=== PATIENT | female | born 1930 | race Caucasian/White ===

== ENCOUNTER 2020-05-09 11:37 | Emergency (ER) | payer MEDICARE ==
[2020-05-09 11:48] VITALS: TEMP 98.2
[2020-05-09] MEDS ORDERED: SODIUM CHLORIDE 0.9% 1,000 ML IV STA (12:28)
--- NOTE | 2020-05-09 12:31 | ED ---
General Adult HPI - General Chief complaint: Fall Stated complaint: Fall, head injury Time Seen by Provider: 05/09/20 11:53 Source: patient, family, RN notes reviewed Mode of arrival: wheelchair Limitations: physical limitation - History of Present Illness Initial comments: Patient is a pleasant extremely hard of hearing 89-year-old female presenting to the emergency department with fall. Patient does not recall the episode. Family is unclear however believes the patient fell because she has chronic problems with her left leg. Patient admits to having chronic problems with her left leg. Patient was acting normally when she was found by family. Patient did strike the back of her head. Unclear whether or not patient lost consciousness. No headache. No chest or back pain. No dyspnea. No neck pain. No abdominal pain. - Related Data Home Medications Medication Instructions Recorded Confirmed Atorvastatin [Lipitor] 20 mg PO DAILY 05/09/20 05/09/20 Latanoprost [Xalatan 0.005%] 1 drop BOTH EYES HS 05/09/20 05/09/20 Losartan [Cozaar] 50 mg PO DAILY 05/09/20 05/09/20 Metoprolol Tartrate [Lopressor] 25 mg PO BID 05/09/20 05/09/20 glipiZIDE [Glucotrol] 10 mg PO TID 05/09/20 05/09/20 hydrALAZINE HCL [Apresoline] 25 mg PO BID 05/09/20 05/09/20 Allergies Allergy/AdvReac Type Severity Reaction Status Date / Time No Known Allergies Allergy Verified 05/09/20 13:53 Review of Systems ROS Statement: Those systems with pertinent positive or pertinent negative responses have been documented in the HPI. ROS Other: All systems not noted in ROS Statement are negative. Constitutional: Denies: fever Eyes: Denies: eye pain ENT: Denies: ear pain Respiratory: Denies: cough Cardiovascular: Denies: chest pain Endocrine: Denies: fatigue Gastrointestinal: Denies: abdominal pain Genitourinary: Denies: dysuria Musculoskeletal: Denies: back pain Skin: Denies: rash Neurological: Denies: headache, weakness, confusion Past Medical History Past Medical History: Diabetes Mellitus, Hyperlipidemia, Hypertension, Thyroid Disorder History of Any Multi-Drug Resistant Organisms: None Reported Past Surgical History: No Surgical Hx Reported Past Psychological History: No Psychological Hx Reported Smoking Status: Never smoker Past Alcohol Use History: None Reported Past Drug Use History: None Reported General Exam Limitations: physical limitation General appearance: alert, in no apparent distress Head exam: Present: other (Posterior scalp laceration) Eye exam: Present: other (right eye completely opacified. Left pupil round reactive.) ENT exam: Present: normal oropharynx Neck exam: Present: normal inspection. Absent: tenderness Respiratory exam: Present: normal lung sounds bilaterally Cardiovascular Exam: Present: regular rate, normal rhythm GI/Abdominal exam: Present: soft. Absent: tenderness Extremities exam: Present: normal inspection, full ROM. Absent: tenderness Neurological exam: Present: alert, CN II-XII intact (Right eye opacified limiting pupil reaction.). Absent: motor sensory deficit Expanded Neurological exam: Present: protecting the airway Patient oriented to: Present: person, place, time Speech: Present: fluid speech Cranial nerves: EOM's Intact: Normal, Facial Sensation: Normal Sensory exam: Upper Extremity Light Touch: Normal, Lower Extremity Light Touch: Normal Motor strength exam: RUE: 5, LUE: 5, RLE: 5, LLE: 5 Eye Response: (4) open spontaneously Motor Response: (6) obeys commands Verbal Response: (5) oriented Psychiatric exam: Present: normal affect, normal mood Skin exam: Present: normal color Course Vital Signs 05/09/20 05/09/20 11:44 13:56 Temperature 98.2 F Pulse Rate 70 87 Respiratory 16 18 Rate Blood Pressure 177/77 O2 Sat by Pulse 96 95 Oximetry - Reevaluation(s) Reevaluation #1: 05/09/20 14:02 Patient reevaluated after discussion with radiologist. Neurological exam unchanged. Case was also discussed with Dr. Worley who would like CTA and will determine disposition following that. 05/09/20 14:30 Discussed case with radiologist and charge preparation technician who do not improve computed tomography scan secondary to GFR. Case again discussed with Dr. Worley who would like patient transferred to [facility]. He did review films. He states patient will need MRI and MRA there. 05/09/20 14:38 Case also discussed with Dr. Fisher, who will accept transfer. EKG Findings - EKG Comments: EKG Findings:: Normal sinus rhythm 71. For screening AV block UT of 206. QRS 96. QT 420. QTc 456. Septal Q waves. No acute ST change. Procedures - Laceration Laceration #1 Consent Obtained: verbal consent Indication: laceration Site: scalp Size (cm): 3 Description: stellate Depth: simple, single layer Pre-repair: wound explored, irrigated extensively Type of Sutures: other ([place]) Number of Sutures: 6 Technique: simple, interrupted Patient Tolerated Procedure: well, no complications Medical Decision Making - Lab Data Result diagrams: 05/09/20 12:36 05/09/20 12:36 Lab Results 05/09/20 05/09/20 05/09/20 Range/Units 12:36 12:36 12:36 WBC 8.7 (3.8-10.6) k/uL RBC 3.64 L (3.80-5.40) m/uL Hgb 11.0 L (11.4-16.0) gm/dL Hct 34.3 (34.0-46.0) % MCV 94.2 (80.0-100.0) fL MCH 30.2 (25.0-35.0) pg MCHC 32.1 (31.0-37.0) g/dL RDW 12.7 (11.5-15.5) % Plt Count 228 (150-450) k/uL Neutrophils % 71 % Lymphocytes % 19 % Monocytes % 5 % Eosinophils % 2 % Basophils % 1 % Neutrophils # 6.2 (1.3-7.7) k/uL Lymphocytes # 1.7 (1.0-4.8) k/uL Monocytes # 0.4 (0-1.0) k/uL Eosinophils # 0.2 (0-0.7) k/uL Basophils # 0.1 (0-0.2) k/uL PT 9.6 (9.0-12.0) sec INR 0.9 (<1.2) APTT 25.3 (22.0-30.0) sec Sodium 138 (137-145) mmol/L Potassium 4.6 (3.5-5.1) mmol/L Chloride 107 (98-107) mmol/L Carbon Dioxide 24 (22-30) mmol/L Anion Gap 7 mmol/L BUN 36 H (7-17) mg/dL Creatinine 1.82 H (0.52-1.04) mg/dL Est GFR (CKD-EPI)AfAm 28 (>60 ml/min/1.73 sqM) Est GFR (CKD-EPI)NonAf 24 (>60 ml/min/1.73 sqM) Glucose 163 H (74-99) mg/dL Calcium 9.3 (8.4-10.2) mg/dL Total Bilirubin 0.5 (0.2-1.3) mg/dL AST 24 (14-36) U/L ALT 16 (4-34) U/L Alkaline Phosphatase 67 (38-126) U/L Troponin I (0.000-0.034) ng/mL Total Protein 6.0 L (6.3-8.2) g/dL Albumin 3.7 (3.5-5.0) g/dL 05/09/20 Range/Units 12:36 WBC (3.8-10.6) k/uL RBC (3.80-5.40) m/uL Hgb (11.4-16.0) gm/dL Hct (34.0-46.0) % MCV (80.0-100.0) fL MCH (25.0-35.0) pg MCHC (31.0-37.0) g/dL RDW (11.5-15.5) % Plt Count (150-450) k/uL Neutrophils % % Lymphocytes % % Monocytes % % Eosinophils % % Basophils % % Neutrophils # (1.3-7.7) k/uL Lymphocytes # (1.0-4.8) k/uL Monocytes # (0-1.0) k/uL Eosinophils # (0-0.7) k/uL Basophils # (0-0.2) k/uL PT (9.0-12.0) sec INR (<1.2) APTT (22.0-30.0) sec Sodium (137-145) mmol/L Potassium (3.5-5.1) mmol/L Chloride (98-107) mmol/L Carbon Dioxide (22-30) mmol/L Anion Gap mmol/L BUN (7-17) mg/dL Creatinine (0.52-1.04) mg/dL Est GFR (CKD-EPI)AfAm (>60 ml/min/1.73 sqM) Est GFR (CKD-EPI)NonAf (>60 ml/min/1.73 sqM) Glucose (74-99) mg/dL Calcium (8.4-10.2) mg/dL Total Bilirubin (0.2-1.3) mg/dL AST (14-36) U/L ALT (4-34) U/L Alkaline Phosphatase (38-126) U/L Troponin I 0.016 (0.000-0.034) ng/mL Total Protein (6.3-8.2) g/dL Albumin (3.5-5.0) g/dL - Radiology Data Radiology results: report reviewed (Computed tomography scan of brain and cervical spine shows tiny left frontal subarachnoid hemorrhage. No skull fracture. No fracture or dislocation of cervical spine.), image reviewed (Chest x-ray shows cardiomegaly and central pulmonary vascular congestion.) Critical Care Time Critical Care Time: Yes Total Critical Care Time: 33 Disposition Clinical Impression: Subarachnoid hemorrhage Disposition: OTHER INSTITUTION NOT DEFINED Is patient prescribed a controlled substance at d/c from ED?: No Referrals: Dallas Monge MD [Primary Care Provider] - 1-2 days Time of Disposition: 14:31 - Out of Hospital Transfer - Req. Specs Out of Hospital Transfer - Requested Specifics: Other Emergency Center
[2020-05-09] MEDS ORDERED: DIPH,PERTUS(ACELL)TETVAC-LF 0.5 ML VIAL IM ONE (12:32)
[2020-05-09 12:58] LABS: Basophils # (A) 0.1 k/uL (0-0.2); Basophils % (A) 1 %; Eosinophils # (A) 0.2 k/uL (0-0.7); Eosinophils % (A) 2 %; HCT 34.3 % (34.0-46.0); Lymphocytes # (A) 1.7 k/uL (1.0-4.8); Lymphocytes % (A) 19 %; MCH 30.2 pg (25.0-35.0); MCHC 32.1 g/dL (31.0-37.0); MCV 94.2 fL (80.0-100.0); Mean Platelet Volume 7.9; Monocytes # (A) 0.4 k/uL (0-1.0); Monocytes % (A) 5 %; Neutrophils # (A) 6.2 k/uL (1.3-7.7); Neutrophils % (A) 71 %; Platelet Count 228 k/uL (150-450); RBC 3.64 m/uL (3.80-5.40); RDW 12.7 % (11.5-15.5); WBC 8.7 k/uL (3.8-10.6)
[2020-05-09 13:06] LABS: Albumin 3.7 g/dL (3.5-5.0); Calcium 9.3 mg/dL (8.4-10.2); Potassium 4.6 mmol/L (3.5-5.1); Total Bilirubin 0.5 mg/dL (0.2-1.3)
[2020-05-09 13:19] LABS: INR 0.9 (<1.2); Partial Thromboplastin Time 25.3 sec (22.0-30.0); Prothrombin Time 9.6 sec (9.0-12.0)
[2020-05-09] MEDS ORDERED: SODIUM CHLORIDE 0.9% 500 ML 500 ML IV STA (13:20)
--- NOTE | 2020-05-09 13:29 | XR ---
EXAMINATION TYPE: XR chest 2V DATE OF EXAM: 05/09/2020 CLINICAL HISTORY: Syncope TECHNIQUE: Frontal and lateral views of the chest are obtained. COMPARISON: None FINDINGS: Low lung volumes. The mediastinal silhouette is within normal limits for size. Cardiomegal y. Pulmonary vasculature is mildly congested. There is haziness at the left costophrenic angle no foc al air space opacity, pleural effusion, or pneumothorax seen. The osseous structures are intact. IMPRESSION: Cardiomegaly and central pulmonary vascular congestion. Findings likely represent CHF.
--- NOTE | 2020-05-09 13:45 | CT ---
EXAMINATION TYPE: CT brain bhavik tran DATE OF EXAM: 05/09/2020 COMPARISON: Fall HISTORY: Fall, struck back of head CT DLP: 1314.1 mGycm Automated exposure control for dose reduction was used. TECHNIQUE: CT scan of the head and cervical spine are performed without contrast. FINDINGS: Tiny focus of asymmetric hyperdensity along the left frontal lobe sulcus likely represent s tiny focus of subarachnoid hemorrhage. There is no acute intraparenchymal hemorrhage, mass effect, or midline shift identified. The ventricles and sulci are within normal limits in size. There is ca lcification of the right globe. There is cataract lens replacement of the left globe. The mastoid air cells and sinuses are clear. No depressed calvarial fracture. Cervical spine is visualized in its entirety from C1 through upper thoracic levels and demonstrates s atisfactory alignment without evidence of acute fracture or dislocation. Multilevel degenerative dis c disease, with grade 1 anterolisthesis of C4 on C5. No high-grade canal stenosis. Prevertebral soft tissue appears within normal limits. The C1-C2 articulation is unremarkable. IMPRESSION: 1. Tiny asymmetric hyperdensity of a left frontal sulcus likely represents tiny focal subarachnoid he morrhage. 2. No intraparenchymal hemorrhage, midline shift, or mass effect. 3. No depressed calvarial fracture or fracture or dislocation of the cervical spine. Dr. Marilyn Costello discussed findings with Dr. Hernando Lau via the phone on 05/09/2020 at 1:37 PM, and results were acknowledged.
[2020-05-09 13:57] VITALS: RESP 18
[2020-05-09 14:55] VITALS: BP 188/86; PULSE 80
== END 2020-05-09 15:21 | disposition other institution (70) ==
LOC: EC 11:37
DX: S06.6X0A Traumatic subarachnoid hemorrhage without loss of consciousness, initial encounter (principal); S01.01XA Laceration without foreign body of scalp, initial encounter; E11.9 Type 2 diabetes mellitus without complications; E78.5 Hyperlipidemia, unspecified; I10 Essential (primary) hypertension; H91.90 Unspecified hearing loss, unspecified ear; Z79.84 Long term (current) use of oral hypoglycemic drugs; Z79.899 Other long term (current) drug therapy; Z23 Encounter for immunization; W18.30XA Fall on same level, unspecified, initial encounter; Y92.009 Unspecified place in unspecified non-institutional (private) residence as the place of occurrence of the external cause
CPT/HCPCS: 12002; 36415; 70450; 71046; 72125; 80053; 84484; 85025; 85610; 85730; 90471; 90715; 93005; 99285